=== PATIENT | female | born 1990 | race Caucasian/White ===

== ENCOUNTER 2016-11-10 18:50 | Inpatient (IN) | payer OTHER, MEDICAID ==
[~2016-11-10] VITALS: Ht 167.6 cm; Wt 83.5 kg
--- NOTE | ~2016-11-10 | HP ---
ADMIT: 11/10/2016 RM/LOC: 222 [facility] MR#: [id number] [facility] [address] [place] [id number] [address] [place] [id number] History and Physical SEX: F AGE: 26 : 1990 DATE OF SERVICE: CHIEF COMPLAINT: Induction of labor. HISTORY OF PRESENT ILLNESS: The patient is a 26-year-old, 2, para 1-0- 0-1 with an intrauterine at 37-3/7 weeks by last menstrual period consistent with an 8-week ultrasound, who was seen in clinic for a growth ultrasound by Maternal- Medicine secondary to chronic hypertension. In the clinic, the patient was noted to have a blood pressure of 120s over 70s but, when she saw the specialist, had a blood pressure 140/90 and was recommended to be induced due to chronic hypertension with increasing blood pressure. PAST MEDICAL HISTORY: 1. Chronic hypertension. 2. Overweight. 3. Anemia during . 4. Palpitations diagnosed as PVCs by Holter monitor. 5. Upper respiratory infection present on admission. PAST SURGICAL HISTORY: None. FAMILY HISTORY: Paternal great grandmother with diabetes. Maternal grandmother with atrial fibrillation. SOCIAL HISTORY: The patient denies alcohol, tobacco, or illicit drug use. She is a former smoker. The patient is to DHEA. MEDICATIONS: 1. vitamins one tablet p.o. daily. 2. Azithromycin 500 mg p.o. daily for upper respiratory infection. 3. Metoprolol 12.5 mg p.o. b.i.d. 4. Iron in the form of ferrous gluconate 1 tablet p.o. b.i.d. 5. Robitussin DM 10 mL q.4 hours p.r.n. ALLERGIES: BENADRYL, WHICH CAUSES HIVES. SULFA, PENICILLIN, AND CODEINE, WHICH ALSO CAUSED HIVES. REVIEW OF SYSTEMS: The patient denies vaginal bleeding, loss of fluid, uterine contractions, or decreased movement. She does endorse sore throat, earache, nasal congestion, and cough as well as fevers at home. LAB ON ADMISSION: Obstetrical labs, blood type O positive, antibody screen negative, RPR nonreactive, rubella immune, HIV negative, gonorrhea and chlamydia negative, hepatitis B surface antigen negative, diabetic screen 133, and group B strep negative. PHYSICAL EXAMINATION: GENERAL: Well-developed, well-nourished, white female, alert and oriented x3 in no acute distress. ADMIT: 11/10/2016 RM/LOC: 222 [facility] MR#: [id number] [address] [id number] EMILY LIMA Y [address] [place] [address] History and Physical SEX: F AGE: 26 : 1990 VITAL SIGNS: Blood pressure 131/75, pulse 107, respirations 16, and temperature 100.3 degrees Fahrenheit. Height 5 feet 6 inches and weight 184 pounds. HEENT: Head is normocephalic and atraumatic. Pupils are equal and round. Extraocular muscles are intact. NECK: Supple. Trachea midline. Thyroid not palpable. HEART: Regular rhythm with mild tachycardia. LUNGS: Clear to auscultation bilaterally. ABDOMEN: Soft, nontender, and gravid. EXTREMITIES: No clubbing, cyanosis, or edema. NEUROLOGIC: Cranial nerves II through XII grossly intact. 2+ deep tendon reflexes noted. PELVIC: Sterile vaginal examination by the nurse on admission reveals cervix to be 1 cm dilated, uneffaced with high station. heart tones in the 140s with 15 x 15 accelerations, moderate long-term variability, and no decelerations. No uterine contractions are noted on the monitor. ASSESSMENT AND PLAN: 1. This is a 26-year-old 2, para 1-0-0-1 with an intrauterine at 37-3/7th weeks by last menstrual period consistent with an 8- week ultrasound, who presents to Labor and Delivery for induction of labor secondary to chronic hypertension with increasing blood pressures as recommended by Maternal- Medicine. 2. Group B strep negative. No prophylaxis will be provided. 3. Fetus is vertex and overall reassuring. Tiffanie Bustillo MD/ blayne JOB #: [id number] CC: Tiffanie Bustillo, Attending Physician Tiffanie Bustillo, Family Physician
--- NOTE | ~2016-11-10 | FD ---
ADMIT: 11/10/2016 RM/LOC: 222 [facility] MR#: [id number] [facility] [address] [place] [id number] [address] [address] Final Diagnosis SEX: F AGE: 26 : 1990 ADMISSION DATE: 11/10/2016 DISCHARGE DATE: 11/13/2016 FINAL DIAGNOSIS: 1. Status post spontaneous vaginal delivery. 2. Chronic hypertension. 3. Anemia during . 4. Overweight. 5. Palpitations. 6. Upper respiratory infection. PROCEDURE: 1. Spontaneous vaginal delivery. 2. Removal of epidural catheter. Tiffanie Bustillo MD/ kike JOB #: [id number] CC: Tiffanie Bustillo MD, Attending Physician Tiffanie Bustillo MD, Family Physician
[2016-11-15] MEDS ORDERED: LOPRESSOR DPS12.5 MG PO (19:47)
[2016-11-15] MEDS ORDERED: FEOSOL-DPS325 MG PO (19:47)
[2016-11-15] MEDS ORDERED: PRENATAL VIT1 TAB PO (19:47)
[2016-11-15] MEDS ORDERED: ZITHROMAX500 MG PO (19:47)
[2016-11-15] MEDS ORDERED: NIPPLECREAM TP (19:48)
[2016-11-15] MEDS ORDERED: COLACE-DPS100 MG PO (19:48)
[2016-11-15] MEDS ORDERED: MILK OF MA400 MG/5 M PO (19:49)
--- NOTE | 2016-12-02 08:14 | OR ---
ADMIT: 11/10/2016 RM/LOC: 222 [facility] MR#: [id number] [facility] [address] [place], [place] [id number] EMILY [address] [place] [address] Operative/Delivery Room Report SEX: F AGE: 26 : 1990 SURGERY DATE: 11/11/2016 SURGEON: Tiffanie Bustillo MD SUBJECTIVE: The patient delivered a viable male by spontaneous vaginal delivery at 1601 hours. A nuchal cord x2 was unable to be reduced and therefore the cord was doubly clamped and cut from the 's neck. The infant was then placed on the mother's abdomen, and the cord was trimmed. The was handed off to the awaiting nurse. Cord blood was sent. The infant's weight was 2740 g. Apgars were 7 and 8. The placenta was then delivered spontaneously intact with a 3-vessel cord. Twenty units of Pitocin were infused with intravenous fluids. An examination of the perineum revealed a periurethral laceration, which was repaired with 3-0 Vicryl using a red rubber catheter in the urethra to maintain anatomy. The laceration was repaired in the usual fashion with excellent hemostasis. Estimated blood loss for the entire procedure was 300 mL. The patient and infant are in her room in stable condition. The epidural catheter was removed and intact without difficulty at the conclusion of the procedure. Tiffanie Bustillo MD/ blayne JOB #: [id number] CC: Tiffanie Bustillo, Attending Physician Tiffanie Bustillo, Family Physician
== END 2016-11-13 13:50 | disposition home or self-care (01) | DRG 774 ==
LOC: 2LDRP 18:50 → BC 18:50 → 2LDRP 18:51 → BC 11-28 08:00
PROVIDERS: ADMIT Obstetrics & Gynecology
PROC: 0UQMXZZ Repair Vulva, External Approach (ICD-10-PCS; principal; 2016-11-11)
PROC: 3E0P7GC Introduction of Other Therapeutic Substance into Female Reproductive, Via Natural or Artificial Opening (ICD-10-PCS; principal; 2016-11-11)
PROC: 10E0XZZ Delivery of Products of Conception, External Approach (ICD-10-PCS; principal; 2016-11-11)
PROC: 10907ZC Drainage of Amniotic Fluid, Therapeutic from Products of Conception, Via Natural or Artificial Opening (ICD-10-PCS; principal; 2016-11-11)
DX: O10.02 Pre-existing essential hypertension complicating childbirth (principal); D62 Acute posthemorrhagic anemia; O69.1XX0 Labor and delivery complicated by cord around neck, with compression, not applicable or unspecified; O99.52 Diseases of the respiratory system complicating childbirth; J06.9 Acute upper respiratory infection, unspecified; O99.02 Anemia complicating childbirth; D64.9 Anemia, unspecified; O99.284 Endocrine, nutritional and metabolic diseases complicating childbirth; E66.3 Overweight; O71.82 Other specified trauma to perineum and vulva; Z87.891 Personal history of nicotine dependence; Z3A.37 37 weeks gestation of pregnancy; Z37.0 Single live birth